=== PATIENT | male | born 2000 | race Two or more races ===

== ENCOUNTER 2018-11-04 19:58 | Emergency (ER) | payer MEDICAID, OTHER ==
[~2018-11-04] VITALS: Ht 160 cm; Wt 63.5 kg
--- NOTE | 2018-11-04 20:05 | NUR ---
PT [id number] C/O FALL FROM SCOOTER, UPPER LIP ABRASION, W/ CHIN LACERATION. PT AXO4. RESPIRATIONS EVEN AND UNLABORED. NO BLEEDING AT THIS MOMENT. PT PUT ON THE CHEMICAL EQUIPMENT REPAIRER AND PULSE OX.
--- NOTE | 2018-11-04 20:24 | NUR ---
PT TAKEN TO CT VIA [facility].
[2018-11-04] MEDS: TDAP [DIPH/PERTUSSIS/TET] 0.5 ML VIAL IM ONE (20:30)
[2018-11-04] MEDS ORDERED: TDAP [DIPH/PERTUSSIS/TET] 0.5 ML VIAL IM ONE (20:33)
[2018-11-04] MEDS ORDERED: BACITRACIN ZINC OINT PACKET 1 EA PACKET TP ONE (20:33)
[2018-11-04] MEDS: BACITRACIN ZINC OINT PACKET 1 EA PACKET TP ONE (20:38)
[2018-11-04] MEDS ORDERED: LIDOCAINE 1% INJ 50 ML MDV IJ ONE (21:16)
--- NOTE | 2018-11-04 21:28 | NUR ---
ER MD AT BEDSIDE FOR LACERATION REPAIR.
--- NOTE | 2018-11-04 22:29 | NUR ---
Patient discharged to home in stable condition. Written and verbal after care instructions given. Patient verbalizes understanding of instruction.
--- NOTE | 2018-11-04 22:30 | NUR ---
PT AMBULATORY WITH STEADY GAIT.
[2018-11-04 22:31] VITALS: BP 140/90
== END 2018-11-04 22:32 | disposition home or self-care (01) ==
LOC: ER 20:00
DX: S06.0X0A Concussion without loss of consciousness, initial encounter (principal); S01.81XA Laceration without foreign body of other part of head, initial encounter; W05.1XXA Fall from non-moving nonmotorized scooter, initial encounter; Y93.89 Activity, other specified; Y92.89 Other specified places as the place of occurrence of the external cause; Y99.8 Other external cause status
CPT/HCPCS: 12011; 70450; 72125; 90471; 90715; 99284; A6402; J3490

== ENCOUNTER 2018-11-20 11:35 | Emergency (ER) | payer MEDICAID ==
[~2018-11-20] VITALS: Ht 165.1 cm; Wt 68.0 kg
[2018-11-20 11:49] VITALS: BP 126/77
== END 2018-11-20 12:18 | disposition home or self-care (01) ==
LOC: EDBD 11:35 → ER 11:35
DX: S01.81XD Laceration without foreign body of other part of head, subsequent encounter (principal); X58.XXXD Exposure to other specified factors, subsequent encounter